=== PATIENT | female | born 1975 | race Caucasian/White ===

== ENCOUNTER 2018-01-26 10:58 | Emergency (ER) | payer MEDICARE ==
--- NOTE | 2018-01-26 12:31 | ERPHSYRPT ---
- History of Present Illness Time Seen by Provider: 01/26/18 12:26 Source: patient, family Patient Subjective Stated Complaint: pt here for swelling to lower legs from knee to feet for 3 days. pt states she climbed down a tree and week ago and has open wounds on feet from bark Triage Nursing Assessment: pt arrived per wc. alert, resp easy, skin w/d/p,pt has blister to right 5th toe, and scabs to top and bottom of feet. and has open wound to bottom of left foot, has slight edema to both feet Physician History: The patient is a 42-year-old female with her complaining of pain and swelling in both feet and legs since falling down a tree trunk one week ago. She tried to climb a small maple tree and when she came down the tree, she slipped all the way down the tree trunk causing abrasions and blisters to her feet. Since that time her feet have become swollen and painful. Her past medical history is significant for fibromyalgia. The patient has been taking Lyrica and tramadol 50 mg 3 times a day without relief. She has not taken Tylenol nor has she taken ibuprofen. The patient wants pain medication in the ER. Occurred: last week Reason for Fall: slipped, fell from height Injuries/Pain Location: lower extremity Loss of Consciousness: no loss of consciousness Severity of Pain-Max: moderate Severity of Pain-Current: moderate Modifying Factors: Improves With: pain medication Associated Symptoms (Fall): trouble walking Allergies/Adverse Reactions: latex Allergy (Verified 01/26/18 11:29) Penicillins Allergy (Verified 01/26/18 11:29) Home Medications: Pregabalin [Lyrica] 200 mg BID 01/26/18 [History] Tramadol HCl 50 mg [Ultram 50 mg] 50 mg TID 01/26/18 [History] Venlafaxine HCl [Venlafaxine HCl ER] 150 mg DAILY 01/26/18 [History] clonazePAM [Clonazepam] 0.5 mg DAILY 01/26/18 [History] Hx Influenza Vaccination/Date Given: No Hx Pneumococcal Vaccination/Date Given: No Immunizations Up to Date: Yes - Review of Systems Constitutional: No Fever, No Chills Eyes: No Symptoms Ears, Nose, & Throat: No Symptoms Respiratory: No Cough, No Dyspnea Cardiac: No Chest Pain, No Edema, No Syncope Abdominal/Gastrointestinal: No Abdominal Pain, No Nausea, No Vomiting, No Diarrhea Genitourinary Symptoms: No Dysuria Musculoskeletal: Fall, Injury, No Back Pain, No Neck Pain Skin: Skin Lesions Neurological: No Dizziness, No Focal Weakness, No Sensory Changes Psychological: No Symptoms Endocrine: No Symptoms Hematologic/Lymphatic: No Symptoms Immunological/Allergic: No Symptoms All Other Systems: Reviewed and Negative - Past Medical History Pertinent Past Medical History: Yes Neurological History: Seizures Musculoskeletal History: Fibromyalgia, Osteoporosis GI Medical History: Polyps History: Dialysis Other Medical History: MS - Past Surgical History Past Surgical History: Yes Gastrointestinal: Hernia Repair - Social History Smoking Status: Current every day smoker Exposure to second hand smoke: Yes Drug Use: none Patient Lives Alone: No - Female History Hx Last Menstrual Period: none Hx Now: No - Nursing Vital Signs Nursing Vital Signs: Initial Vital Signs Temperature 98.3 F 01/26/18 11:18 Pulse Rate 97 H 01/26/18 11:18 Respiratory Rate 16 01/26/18 11:18 Blood Pressure 122/57 01/26/18 11:18 O2 Sat by Pulse Oximetry 97 01/26/18 11:18 Pain Scale Pain Intensity 9 - Trena Coma Score Best Eye Response (Trena): (4) open spontaneously Best Verbal Response ([place]): (5) oriented Best Motor Response (Trena): (6) obeys commands Trena Total: 15 - Physical Exam General Appearance: no apparent distress, alert Head Injury: no evidence of injury Eye Exam: PERRL/EOMI ENT Exam: airway nml Neck Exam: normal inspection, No tenderness Respiratory/Chest Exam: normal breath sounds, No chest tenderness, No respiratory distress Cardiovascular Exam: normal heart sounds, regular rate/rhythm Gastrointestinal Exam: soft, No tenderness, No distention, No guarding, No ecchymosis Rectal Exam: not done Back Exam: normal inspection, No vertebral tenderness Extremity Exam: normal inspection, normal range of motion, pelvis stable, No deformities Neurologic Exam: alert, oriented x 3, cooperative, sensation nml, No motor deficits Skin Exam: other (There is mild swelling of the right foot and very mild swelling of the left foot. There is an open wound abrasion the medial side of each feet. There is a small healing laceration to the sole of the right foot.) SpO2 Interpretation: normal SpO2: 97 Oxygen Delivery: Room Air Ordered Tests: Active Orders 24 hr Category Date Time Status BMP Stat Lab 01/26/18 12:45 Completed CBC W DIFF Stat Lab 01/26/18 12:45 Completed Lactic Acid Stat Lab 01/26/18 12:55 Completed Medication Summary Discontinued Medications Generic Name Dose Route Start Last Admin Trade Name Stephanie PRN Reason Stop Dose Admin Ketorolac Tromethamine 60 mg 01/26/18 12:33 01/26/18 12:38 Toradol 30 Mg Injection IM 01/26/18 12:34 60 mg STAT ONE Administration Ketorolac Tromethamine Confirm 01/26/18 12:38 Toradol 30 Mg Injection Administered 01/26/18 12:39 Dose 60 mg .ROUTE .STThoughtLeadr-MED ONE Lab/Rad Data: Laboratory Result Diagrams 01/26/18 12:45 01/26/18 12:45 Laboratory Results 01/26/18 01/26/18 01/26/18 Range/Units 12:55 12:45 12:45 WBC 12.3 H (4.0-10.5) K/mm3 RBC 3.94 L (4.1-5.4) M/mm3 Hgb 12.5 (12.0-16.0) gm/dl Hct 37.7 (35-47) % MCV 95.7 (78-100) fl MCH 31.7 (26-32) pg MCHC 33.2 (32-36) g/dl RDW 14.0 (11.5-14.0) % Plt Count 262 (150-450) K/mm3 MPV 9.8 H (6-9.5) fl Gran % 74.5 H (36.0-66.0) % Eos # (Auto) 0.03 (0-0.5) Absolute Lymphs (auto) 2.45 (1.0-4.6) Absolute Monos (auto) 0.62 (0.0-1.3) Lymphocytes % 20.0 L (24.0-44.0) % Monocytes % 5.1 (0.0-12.0) % Eosinophils % 0.2 (0.00-5.0) % Basophils % 0.2 (0.0-0.4) % Absolute Granulocytes 9.13 H (1.4-6.9) Basophils # 0.03 (0-0.4) Sodium 143 (137-145) mmol/L Potassium 3.5 (3.5-5.1) mmol/L Chloride 111 H (98-107) mmol/L Carbon Dioxide 26 (22-30) mmol/L Anion Gap 9.4 (5-15) MEQ/L BUN 9 (7-17) mg/dL Creatinine 0.60 (0.52-1.04) mg/dL Estimated GFR > 60.0 ML/MIN Glucose 115 H (74-106) mg/dL Lactic Acid 1.1 (0.4-2.0) Calcium 8.5 (8.4-10.2) mg/dL - Progress Progress: improved Counseled pt/family regarding: lab results, diagnosis, need for follow-up - Departure Time of Disposition: 14:16 Departure Disposition: Home Clinical Impression: Cellulitis Condition: Stable Critical Care Time: No Referrals: ZACHARIAH EDGAR [Primary Care Provider] - Additional Instructions: You have cellulitis of your feet. You were given Rocephin 1 g and Toradol 60 mg by IM in the ER. Take Toradol 10 mg every 6 hours as needed for pain. Take clindamycin 300 mg 4 times a day for 10 days. Keep the open areas on the skin have referred with a Telfa pad until healed. Follow-up with your family doctor in 2 or 3 days if no improvement. Prescriptions: Ketorolac Tromethamine [Toradol] 10 mg PO Q6H PRN PRN #12 tablet PRN Reason: Pain Clindamycin HCl 1 cap PO QID #40 capsule
[2018-01-26] MEDS ORDERED: TORAdol 30 mg Injection IM ONE (12:33)
[2018-01-26] MEDS ORDERED: TORAdol 30 mg Injection ONE (12:38)
[2018-01-26 12:44] VITALS: PULSE 70
[2018-01-26 12:53] LABS: BASOPHIL % 0.2 % (0.0-0.4); Basophil (Absolute #) 0.03 (0-0.4); Eosinophil % 0.2 % (0.00-5.0); Eosinophil (Absolute #) 0.03 (0-0.5); Granulocyte Absolute (ANC) 9.13 (1.4-6.9); Granulocytes % 74.5 % (36.0-66.0); Hematocrit 37.7 % (35-47); Hemoglobin 12.5 gm/dl (12.0-16.0); Lymphocyte (Absolute #) 2.45 (1.0-4.6); Mean Cell Volume 95.7 fl (78-100); Mean Corpuscular Hemoglobin 31.7 pg (26-32); Mean Corpuscular Hgb Concent. 33.2 g/dl (32-36); Mean Platelet Volume 9.8 fl (6-9.5); Monocyte (Absolute #) 0.62 (0.0-1.3); Monocytes % 5.1 % (0.0-12.0); Platelet Count 262 K/mm3 (150-450); Red Blood Count 3.94 M/mm3 (4.1-5.4); White Blood Count 12.3 K/mm3 (4.0-10.5)
[2018-01-26 13:20] LABS: ANION GAP 9.4 MEQ/L (5-15); BLOOD UREA NITROGEN 9 mg/dL (7-17); CHLORIDE 111 mmol/L (98-107); Calcium 8.5 mg/dL (8.4-10.2); Carbon Dioxide 26 mmol/L (22-30); Glucose 115 mg/dL (74-106); Potassium 3.5 mmol/L (3.5-5.1); SODIUM 143 mmol/L (137-145)
[2018-01-26] MEDS ORDERED: Rocephin 500 MG INJ IM ONE (14:16)
[2018-01-26 14:21] VITALS: O2SAT 97
[2018-01-26] MEDS ORDERED: Rocephin 1000 MG INJ ONE (14:22)
[2018-01-26] MEDS ORDERED: XYLOCAINE 1% HCL 20 ML MDV ONE (14:22)
[2018-01-26 14:56] VITALS: BP 110/60
== END 2018-01-26 14:57 | disposition home or self-care (01) ==
LOC: ED 10:58
DX: L03.116 Cellulitis of left lower limb (principal); L03.115 Cellulitis of right lower limb; M79.672 Pain in left foot; M79.671 Pain in right foot; W17.89XA Other fall from one level to another, initial encounter; Y93.39 Activity, other involving climbing, rappelling and jumping off; Z79.899 Other long term (current) drug therapy
CPT/HCPCS: 36415; 80048; 83605; 85025; 96372; 99283; J0696; J1885

== ENCOUNTER 2018-02-02 17:28 | Emergency (ER) | payer MEDICARE ==
[2018-02-02] MEDS ORDERED: BACIGUENT PACKET TP ONE (18:09)
[2018-02-02] MEDS ORDERED: TORAdol 30 mg Injection IM ONE (18:10)
[2018-02-02] MEDS ORDERED: BACIGUENT PACKET ONE (18:13)
[2018-02-02] MEDS ORDERED: TORAdol 30 mg Injection ONE (18:13)
--- NOTE | 2018-02-02 18:16 | ERPHSYRPT ---
- History of Present Illness Time Seen by Provider: 02/02/18 18:10 Source: patient Exam Limitations: no limitations Patient Subjective Stated Complaint: Multiple wounds to bilateral feet x3 weeks. Triage Nursing Assessment: Pt presents to the ED with complaints of wounds to bilateral feet. Pt states onset x3 weeks. Pt states she was seen 1 week ago for complaint. Pt states painful but also numb. Pt denies other complaints. Skin PWD. No active drainage or bleeding noted. Physician History: 42-year-old white female arrives with complaint of multiple abrasions to bilateral feet symptoms have been there for 2-3 week she was seen here a week ago by Dr. Bradford given a shot of Rocephin placed on clindamycin and also given Toradol injection Patient states that her feet are not getting any better Patient is walking around in shoes with no socks Past medical history includes seizures, fibromyalgia, osteoporosis, polyps, MS Past surgical history includes hernia repair Timing/Duration: week(s) (3 weeks) Severity: moderate Modifying Factors: Improves With: nothing Associated Symptoms: No nausea, No vomiting, No abdominal pain, No shortness of breath, No heartburn, No diaphoresis, No chills, No chest pain, No fever, No headaches, No loss of appetite, No malaise, No rash, No syncope, No seizure, No weakness Allergies/Adverse Reactions: latex Allergy (Verified 01/26/18 11:29) Penicillins Allergy (Verified 01/26/18 11:29) Home Medications: Pregabalin [Lyrica] 200 mg PO BID 01/26/18 [History] Tramadol HCl 50 mg [Ultram 50 mg] 50 mg TID 01/26/18 [History] Venlafaxine HCl [Venlafaxine HCl ER] 150 mg DAILY 01/26/18 [History] clonazePAM [Clonazepam] 0.5 mg DAILY 01/26/18 [History] Hx Tetanus, Diphtheria Vaccination/Date Given: No Hx Influenza Vaccination/Date Given: No Hx Pneumococcal Vaccination/Date Given: No Immunizations Up to Date: No - Review of Systems Constitutional: No Fever, No Chills Eyes: No Symptoms Ears, Nose, & Throat: No Symptoms Respiratory: No Cough, No Dyspnea Cardiac: No Chest Pain, No Edema, No Syncope Abdominal/Gastrointestinal: No Abdominal Pain, No Nausea, No Vomiting, No Diarrhea Genitourinary Symptoms: No Dysuria Musculoskeletal: Other (bilateral foot pain) Skin: Other (the patient's bilateral feet have multiple areas of excoriation on plantar surface and sides of feet which appear to have resulted from walking in her shoes withous socks , there is mild edema to the dorsum of her feet but area is not hot,) Neurological: No Dizziness, No Focal Weakness, No Sensory Changes Psychological: No Symptoms Endocrine: No Symptoms All Other Systems: Reviewed and Negative - Past Medical History Pertinent Past Medical History: Yes Neurological History: Seizures Musculoskeletal History: Fibromyalgia, Osteoporosis GI Medical History: Polyps History: Dialysis Other Medical History: MS - Past Surgical History Past Surgical History: Yes Gastrointestinal: Hernia Repair - Social History Smoking Status: Current every day smoker How long have you smoked: 16 years Exposure to second hand smoke: Yes Drug Use: none Patient Lives Alone: No - Female History Hx Now: No - Nursing Vital Signs Nursing Vital Signs: Initial Vital Signs Temperature 98.2 F 02/02/18 17:39 Pulse Rate 82 02/02/18 17:39 Respiratory Rate 15 02/02/18 17:39 Blood Pressure 134/80 02/02/18 17:39 O2 Sat by Pulse Oximetry 93 L 02/02/18 17:39 Pain Scale Pain Intensity 10 - Physical Exam General Appearance: mild distress Eye Exam: PERRL/EOMI, eyes nml inspection Ears, Nose, Throat Exam: normal ENT inspection, TMs normal, pharynx normal, moist mucous membranes Neck Exam: normal inspection, non-tender, supple, full range of motion Respiratory Exam: normal breath sounds Cardiovascular Exam: regular rate/rhythm Gastrointestinal/Abdomen Exam: soft, normal bowel sounds, No tenderness, No mass Back Exam: normal inspection, normal range of motion, No CVA tenderness, No vertebral tenderness Extremity Exam: other (multiple areas on plantar surface and sides of feet which appear to be healing blisters , mild erythema dorsal feet area not hot dorsal, no drainage,) Neurologic Exam: alert, oriented x 3, cooperative, normal mood/affect, nml cerebellar function, nml station & gait, sensation nml, No motor deficits SpO2 Interpretation: normal (93%) SpO2: 93 Oxygen Delivery: Room Air - Course Nursing assessment & vital signs reviewed: Yes Ordered Tests: Active Orders 24 hr Category Date Time Status Wound Care STAT Care 02/02/18 18:09 Active Medication Summary Generic Name Dose Route Start Last Admin Trade Name Geovanyq PRN Reason Stop Dose Admin Ketorolac Tromethamine 60 mg 02/02/18 18:10 Toradol 30 Mg Injection IM 02/02/18 18:11 STAT ONE Discontinued Medications Generic Name Dose Route Start Last Admin Trade Name Geovanyq PRN Reason Stop Dose Admin Bacitracin Zinc 0.9 gm 02/02/18 18:09 Baciguent Packet TP 02/02/18 18:10 STAT ONE - Progress Progress: improved Progress Note: 02/02/18 18:18 This is a 42-year-old white female she arrives with complaint of bilateral feet pain symptoms for 3 weeks. She has what appears to be areas of excoriation and possible blisters which perhaps had occurred secondary to wearing her shoes without socks. Most of these areas are on the plantar surface of her feet as well as the lateral surfaces of her feet. There is slight erythema to bilateral feet however this areas are not hot to touch. Patient was seen here in this emergency room by Dr. Bradford one week ago. He gave the patient an injection of Toradol, an injection of Rocephin, and place the patient on clindamycin. Patient has not followed up with her family doctor. She complains of continued pain. Patient's inspect report is checked on this patient patient is on tramadol 50 mg she received 90 of these on January 31, 2018 She also received jony 150 mg she received 90 of these on January 29, 2018 On examination patient does not appear to be in acute distress she does appear to have multiple what appear to be healing abrasions on her feet and slight erythema to the dorsum of both feet. She has good capillary refill to all toes sensation intact to all toes dorsal pedal and posterior tibial pulses are intact. Will go ahead and have nurses clean the area, apply bacitracin. Will write for Bactrim DS one orally twice a day for 10 days. Patient is advised to take her Lyrica and tramadol as prescribed by her family doctor. She is also advised to wear socks and not wear shoes without socks. She is advised to follow-up with her family doctor. - Departure Time of Disposition: 18:24 Departure Disposition: Home Clinical Impression: healing abrasions bilateral feet, Bilateral foot pain, History of chronic pain Cellulitis Qualifiers: Site of cellulitis: extremity Site of cellulitis of extremity: lower extremity Laterality: unspecified laterality Qualified Code(s): L03.119 - Cellulitis of unspecified part of limb Condition: Fair Critical Care Time: No Referrals: ZACHRAIAH EDGAR [Primary Care Provider] - Additional Instructions: Return home. Bactrim DS one orally twice a day for 10 days. 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 Wear socks change socks often Follow-up with your family doctor. Return for acute distress or for severe symptoms. Prescriptions: Smz/Tmp Ds Tablet [Bactrim Ds Tablet] 1 tab PO BID #20 tablet
[2018-02-02 19:04] VITALS: BP 121/79; PULSE 78; O2SAT 99
== END 2018-02-02 19:05 | disposition home or self-care (01) ==
LOC: ED 17:28
DX: L03.116 Cellulitis of left lower limb (principal); L03.115 Cellulitis of right lower limb; S90.812A Abrasion, left foot, initial encounter; S90.811A Abrasion, right foot, initial encounter; M79.672 Pain in left foot; M79.671 Pain in right foot; Z79.899 Other long term (current) drug therapy
CPT/HCPCS: 96372; 99283; J1885; A9270-GY

== ENCOUNTER 2018-07-15 09:19 | Emergency (ER) | payer MEDICARE ==
[2018-07-15] MEDS ORDERED: Adacel Vial IM ONE ×2 (09:29→09:32)
[2018-07-15] MEDS ORDERED: XYLOCAINE 2% HCL 20 ML MDV IJ ONE (09:30)
[2018-07-15] MEDS ORDERED: XYLOCAINE 2% HCL 20 ML MDV ONE (09:32)
[2018-07-15 09:35] VITALS: BP 135/8; PULSE 75; O2SAT 99
[2018-07-15] MEDS ORDERED: Norco 10/325 MG Tablet PO ONE (09:50)
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
[2018-07-15] MEDS ORDERED: Norco 10/325 MG Tablet ONE (09:58)
== END 2018-07-15 10:17 | disposition home or self-care (01) ==
LOC: ED 09:19
DX: S01.111A Laceration without foreign body of right eyelid and periocular area, initial encounter (principal); W20.8XXA Other cause of strike by thrown, projected or falling object, initial encounter; Y93.89 Activity, other specified
CPT/HCPCS: 12011; 90471; 90715; 99284; A9270-GY

== ENCOUNTER 2022-12-05 13:27 | Emergency (ER) | payer MEDICARE ==
--- NOTE | 2022-12-05 13:32 | ERPHSYRPT ---
- History of Present Illness Time Seen by Provider: 12/05/22 13:32 Source: patient ( weeks) Exam Limitations: no limitations Physician History: This is a 47-year-old white female patient who has a history of seizure disorder, fibromyalgia and osteoporosis and presents with pain in her left scapula posteriorly as well as just medial to the scapula on the left side. The patient also states that the pain is worse when she moves it and if she takes a deep breath. Patient has not had a cough or fever. She did not suffer any fall or traumatic injury. She does not have anterior chest pain. Patient states she has had plain x-rays which did not show anything of significance per her report. She is not actually seen her primary care provider. The primary care provider is a nurse practitioner in her office called in the radiology department to perform plain x-ray films. Occurred: other (2) Method of Injury: other (No known acute injury) Quality: aching, stabbing Severity of Pain-Max: mild (To moderate) Severity of Pain-Current: mild (To moderate) Extremities Pain Location: shoulder: left (Posterior scapula) Modifying Factors: Improves With: movement, other (Deep breathing worsens pain) Associated Symptoms: none Allergies/Adverse Reactions: latex Allergy (Verified 12/05/22 13:46) Penicillins Allergy (Verified 12/05/22 13:46) fentanyl Adverse Reaction (Verified 12/05/22 13:46) Iodinated Contrast Media Adverse Reaction (Verified 12/05/22 13:46) Home Medications: Pregabalin [Lyrica] 150 mg PO BID 01/26/18 [History] Venlafaxine HCl [Venlafaxine HCl ER] 150 mg DAILY 01/26/18 [History] clonazePAM [Clonazepam] 0.5 mg PO DAILY 01/26/18 [History] Linaclotide [Linzess] 145 mcg PO DAILY 12/05/22 [History] dilTIAZem HCL [Diltiazem HCl] 30 mg PO TID 12/05/22 [History] Hx Tetanus, Diphtheria Vaccination/Date Given: No Hx Influenza Vaccination/Date Given: No Hx Pneumococcal Vaccination/Date Given: No Travel Risk - International Travel Have you traveled outside of the country in past 3 weeks: No - Coronavirus Screening Are you exhibiting any of the following symptoms?: No Close contact with a COVID-19 positive Pt in past 14-21 Days: No - Review of Systems Constitutional: No Symptoms Eyes: No Symptoms Ears, Nose, & Throat: No Symptoms Respiratory: No Symptoms Cardiac: No Symptoms Abdominal/Gastrointestinal: No Symptoms Genitourinary Symptoms: No Symptoms Musculoskeletal: Other (Pain left scapula) Skin: No Symptoms Neurological: No Symptoms Psychological: No Symptoms Endocrine: No Symptoms Hematologic/Lymphatic: No Symptoms Immunological/Allergic: No Symptoms All Other Systems: Reviewed and Negative - Past Medical History Pertinent Past Medical History: Yes Neurological History: Seizures Musculoskeletal History: Fibromyalgia, Osteoporosis GI Medical History: Polyps History: Dialysis Other Medical History: MS - Past Surgical History Past Surgical History: Yes Gastrointestinal: Hernia Repair - Social History Smoking Status: Current every day smoker How long have you smoked: 16 years Exposure to second hand smoke: No Drug Use: none Patient Lives Alone: No - Nursing Vital Signs Nursing Vital Signs: Initial Vital Signs Temperature 97.7 F 12/05/22 13:34 Pulse Rate 83 12/05/22 13:34 Blood Pressure 118/77 12/05/22 13:34 O2 Sat by Pulse Oximetry 98 12/05/22 13:34 Pain Scale Pain Intensity 9 - Physical Exam General Appearance: no apparent distress, alert, anxiety, thin Eyes, Ears, Nose, Throat Exam: normal ENT inspection, moist mucous membranes Neck Exam: normal inspection, non-tender, supple, full range of motion Cardiovascular/Respiratory Exam: chest non-tender, no respiratory distress Abdominal Exam: non-tender Back Exam: normal inspection, normal range of motion, point tenderness (Left scapula and just medial to the left scapula with palpation), No CVA tenderness Shoulder Exam: normal inspection, non-tender, no evidence of injury, normal ROM Elbow/Forearm Exam: normal inspection, non-tender, no evidence of injury, normal ROM Wrist Exam: normal inspection, non-tender, no evidence of injury, normal ROM Hand Exam: normal inspection, non-tender, no evidence of injury, normal ROM Neuro/Tendon Exam: normal sensation, normal motor functions, normal tendon functions Mental Status Exam: alert, oriented x 3, cooperative Skin Exam: normal color, warm, dry SpO2 Interpretation: normal O2 Delivery: Room Air - Course Nursing assessment & vital signs reviewed: Yes Ordered Tests: Active Orders 24 hr Category Date Time Status CHEST WITHOUT CONTRAST [CT] Stat Exams 12/05/22 13:44 Completed RECONSTRUCTION [CT] Stat Exams 12/05/22 13:44 Completed - Progress Progress: unchanged, pain not gone completely, re-examined Progress Note: 12/05/22 14:14 CT scan of the left scapula and left shoulder contrast show no acute bony or soft tissue abnormalities. The impression was reviewed by me. CT scan of the chest without contrast shows no acute intrathoracic bony or soft tissue abnormality. The impression from the radiologist was reviewed by me. 12/05/22 14:17 This patient's medical issue is 1 of moderate complexity. The level of complexity and the work-up performed is based on review of the patient's past medical history, review of the patient's medication list, review of the patient's drug allergy list, history present illness and physical findings on examination. The work-up includes a CAT scan of the left scapula/left upper extremity and a CAT scan of the chest. Both of these CAT scans are without contrast. I reviewed the results/impression of the CAT scans that were read by the radiologist. The patient does not have an acute, emergent issue. The results were discussed with the patient. We will send a prescription of prednisone to the patient's pharmacy as well as a prescription of orphenadrine. Patient is to follow-up with her primary care provider for further evaluation management. Counseled pt/family regarding: diagnosis, need for follow-up, rad results Medical Desision Making - Discussion of managment Reviewed:: Test results Agreed on:: Treatment plan, need for follow-up - Diagnostic Testing Radiological Interpretation: Reviewed by me, Teleradiologist Report - Risk of complications The pt has a mod risk of morbidity or mortality based on: Need for prescription drug management - Departure Departure Disposition: Home Clinical Impression: Musculoskeletal pain of upper extremity, Back pain Condition: Stable Critical Care Time: No Referrals: DOCTOR,NO FAMILY [Primary Care Provider] - Follow up/PCP as directed Additional Instructions: Take the new medication as prescribed. Follow-up with your primary care provider for further evaluation and testing. Make sure you do not take any sedating medication within 3 hours after taking your orphenadrine muscle relaxant Prescriptions: Prednisone 10 mg [Deltasone 10 mg] 10 mg PO TID #12 tablet Orphenadrine Citrate 100 mg [Norflex 100 MG Tablet] 100 mg PO BID #10 tab
--- NOTE | 2022-12-05 14:12 | XRAY ---
Indication: Scapular pain. Sagittal, coronal, and axial reformatted images left shoulder/scapula performed using raw data from same day CT chest exam. Comparison: None Left shoulder articulation intact. No acute fracture, suspicious bony lesions, or osseous destructive process. Visualized noncontrasted soft tissues unremarkable. Impression: Normal CT left shoulder/scapula.
--- NOTE | 2022-12-05 14:12 | XRAY ---
Indication: Painful inspiration. Multiple contiguous axial images obtained through the chest without contrast. Comparison: None Lungs inflated and clear. Heart not enlarged. Aorta is normal in course and caliber. No pathologic mediastinal lymphadenopathy. Bony thorax intact with incidental tiny T11/T12 Schmorl nodes. Limited upper abdomen demonstrates 1 cm right mid renal cortical cyst. Impression: Small right renal cyst and tiny Schmorl nodes. Remaining CT chest without contrast exam is normal.
[2022-12-05 14:42] VITALS: BP 125/89; PULSE 72; O2SAT 99
== END 2022-12-05 14:46 | disposition home or self-care (01) ==
LOC: ED 13:27
DX: M79.602 Pain in left arm (principal); M25.512 Pain in left shoulder; M54.6 Pain in thoracic spine; Z79.899 Other long term (current) drug therapy; Z72.0 Tobacco use; Z79.52 Long term (current) use of systemic steroids
CPT/HCPCS: 71250; 76376; 99282